=== PATIENT | male | born 1990 | race African-American/Black ===

== ENCOUNTER 2017-04-08 10:12 | Emergency (ER) | payer BC ==
[~2017-04-08] VITALS: Ht 188 cm; Wt 93.0 kg
--- NOTE | ~2017-04-08 | CT105 ---
[facility] A Service of [facility] RADIOLOGY TEXT RESULTS PATIENT: MATEO DEJESUS LOCATION: [facility] : [birth year] UNIT #: [id number] AGE: [address]: Margarita Hassan MD SEX: M ORDER DR: [id number] [facility] [address] [place], [place] [address] [id number] E MR#: [id number] #: [id number] NAME: MATEO DEJESUS : 1990 SEX: M STUDY DATE/TIME: 04/08/2017 15:20 UNIT: [facility] ROOM: STUDY DESCRIPTION: CT Pelvis W Cont Attending Physician: Margarita Hassan M.D. Ordering Physician: Margarita Hassan M.D. Primary Care Physician: Anna Candelario MEDICAL IMAGING REPORT This report is preliminary unless electronic signature is present EXAM CT pelvis with IV contrast HISTORY Rectal pain today and rectal bleeding. FINDINGS CT pelvis was performed with oral and IV contrast. This CT exam was performed with one or more of the following radiation dose reduction techniques: Automatic exposure control, adjustment of mA and/or kV according to patient size, and iterative reconstruction. There is moderate circumferential anal and perianal soft tissue thickening, extending over a craniocaudal dimension of nearly 6 cm. Considerations include infectious or inflammatory etiologies. Soft tissue mass is not excluded and correlation to physical exam findings is recommended. No intraperitoneal fluid or stranding. No bowel dilatation. Normal appendix. The urinary bladder is normal. Prostate gland is unremarkable. IMPRESSION 1. Moderately extensive anal and perianal soft tissue thickening extending over a length of nearly 6 cm. Consider infectious or inflammatory etiologies. Soft tissue mass is not excluded and correlation to physical exam findings is recommended. 2. No intraperitoneal abnormality in the pelvis. Dictated by... Alexei Alvarez M.D. THIS IS AN ELECTRONICALLY VERIFIED REPORT Alexei Alvarez M.D. at 04/09/2017 8:37 PM [facility] A Service of [facility] RADIOLOGY TEXT RESULTS PATIENT: MATEO DEJESUS LOCATION: [facility] : [birth year] UNIT #: [id number] AGE: [address]: Margarita Hassan MD SEX: M ORDER DR: INES/santi TD: 04/08/2017 22:05 JOB #: [id number] MEDICAL IMAGING REPORT Page 1 of 1 COPY
[2017-04-08 14:19] LABS: BASOPHIL% 0.1 % (0-2.5); EOSINOPHIL% 0.5 % (0.0-7.0); HEMATOCRIT 41.4 % (38.0-50.0); HEMOGLOBIN 13.5 gm/dL (13.0-16.0); LYMPHOCYTE% 12.6 % (17.0-45.0); MEAN CELL VOLUME 86.7 FL (83-96); MEAN CORPUSCULAR HEMOGLOBIN 28.2 PG (28-34); MEAN CORPUSCULAR HGB CONC 32.5 g/dL (30-36); MEAN PLATELET VOLUME 8.3 FL (6.5-11.5); MONOCYTE# 0.4 X10e3 (0-1.0); MONOCYTE% 5.4 % (3.0-12.0); NEUTROPHIL# 6.3 X10e3 (1.5-7.1); NEUTROPHIL% 81.4 % (40-75); PLATELET COUNT 154 X10e3 (140-420); RED BLOOD COUNT 4.78 X10e (3.90-5.60); RED CELL DISTRIBUTION WIDTH 13.9 % (11.0-15.5); WHITE BLOOD COUNT 7.8 X10e3 (4.0-10.5)
[2017-04-08 14:20] LABS: DIFF IND NO
[2017-04-08 14:41] LABS: CALCIUM SERUM 9.3 mg/dL (8.4-10.2); CREATININE SERUM 0.8 mg/dL (0.6-1.4); POTASSIUM 3.6 mmol/L (3.5-5.1)
[2017-04-13] MEDS ORDERED: NO MEDICATIONS (16:18)
== END 2017-04-08 17:29 | disposition home or self-care (01) ==
LOC: CED 10:12
PROVIDERS: Emergency Medicine
DX: K62.5 Hemorrhage of anus and rectum (principal)
CPT/HCPCS: 36415; 72193; 80048; 85025; 99284; Q9967